=== PATIENT | male | born 1975 | race Caucasian/White ===

== ENCOUNTER 2017-07-05 14:03 | Emergency (ER) | payer OTHER ==
[~2017-07-05] VITALS: Ht 175.3 cm; Wt 81.1 kg
[2017-07-05 14:08] VITALS: TEMP 37.2; Ht 175.3 cm; Wt 81.1 kg
[2017-07-05] MEDS ORDERED: LIDOCAINE/EPINEPHRINE 1% 20 ML VIAL INFIL STA (14:23)
[2017-07-05] MEDS ORDERED: MULTTAB58 PO (14:54)
[2017-07-05] MEDS ORDERED: OMEG10007 PO (14:54)
[2017-07-05] MEDS ORDERED: ASPI81TA28 PO (14:54)
--- NOTE | 2017-07-05 14:58 | EMERGENCY ROOM VISIT NOTE ---
ED Visit Note First contact with patient: 14:12 CHIEF COMPLAINT: Scalp laceration HISTORY OF PRESENT ILLNESS: This 41-year-old male patient presents emergency department, ambulatory, approximately 1 hour after striking the head with a large tool used to be holes into the ground for a fence. He states that the toe caught the edge of the post, forcibly striking the top left side of his head. There was no loss of consciousness, blurry vision, nausea, vomiting, or unusual behavior afterwards. The patient rates the pain as sharp and 3/10. The patient denies neck pain. The bleeding has not stopped. The patient's tetanus shot is not up to date. REVIEW OF SYSTEMS: A 6 system review of systems was completed with positives and pertinent negatives listed in the HPI. ALLERGIES: None MEDICATIONS: Aspirin, ibuprofen PMH: None SOCIAL HISTORY: The patient lives locally with family. He denies drug, alcohol , tobacco use. PHYSICAL EXAM: Vital Signs: Reviewed Nurse's notes, vital signs stable. GENERAL : This is a 41-year-old white male, in no acute distress, well-developed, well- nourished. NEURO: Patient was alert and oriented to person place and time. Sensory and motor functions grossly intact. No focal neurologic deficits. Normal sensation to light and sharp touch. EYES: PERRLA. EOMI. Fundoscopic exam without hemorrhages or papilledema. EARS: No hemotympanum. No blanchard sign or mastoid tenderness. SKIN: There is a 2 cm laceration on the superior left temporal aspect of the scalp whose edges are gaping apart. There is minimal bleeding. The wound is clean and there are no deep structures present. NECK: Supple, cervical spine nontender to palpation. EMERGENCY DEPARTMENT COURSE: I examined the patient. Verbal consent was obtained to perform the procedure. Using sterile technique the wound was cleaned with Betadine. The area was sterilely draped. 2 ml of 1% lidocaine with epinephrine was used to anesthetize the patient's scalp. Once the patient was numb, the wound was copiously irrigated under pressure with sterile saline. The wound was explored and there were no deep structures present. The laceration was repaired using 5 jean carlos with the wound edges being well approximated. The patient tolerated the procedure well. The bleeding stopped. The area was cleaned with sterile saline and dressed with bacitracin ointment. The patient was given a Tdap booster. The patient was discharged home in good condition. I attest that I have personally reviewed the patient's current medication list. Blood Pressure Screening: Patient was found to have a slightly elevated blood pressure due to circumstances. I do not believe that the patient requires hypertension monitoring. Differential diagnosis includes head injury, concussion, ICH, laceration, contusion, fracture, sprain/strain, tendon or ligament injury, neurovascular compromise, foreign body, assault, and others DIAGNOSIS: Scalp laceration The chart was completed utilizing [employer] Speech voice recognition software. Grammatical errors, random word insertions, pronoun errors, and incomplete sentences are an occasional consequence of this system due to software limitations, ambient noise, and hardware issues. Any formal questions or concerns about the content, text, or information contained within the body of this dictation should be directly addressed to the provider for clarification. Current/Historical Medications Scheduled Aspirin (Aspirin Ec), 81 MG PO DAILY Fish Oil (Freeland-3), 1 CAP PO DAILY Multiple Vitamin (Multivitamin), 1 TAB PO DAILY Allergies Coded Allergies: No Known Allergies (Unverified , 07/05/17) Vital Signs Date Time Temp Pulse Resp B/P (MAP) Pulse Ox O2 Delivery O2 Flow Rate FiO2 07/05/17 14:08 37.2 82 18 142/95 98 Room Air Departure Information Impression Primary Impression: Scalp laceration Dispostion Home / Self-Care Condition GOOD Referrals Yvette Torres PA-C (PCP) Patient Instructions ED Laceration Scalp Stitch Or Stap, [facility] Additional Instructions You have received 5 jean carlos on your scalp. These jean carlos are NOT dissolvable and WILL need to be removed by a health care provider in 10 days. You can return to the Emergency Department or contact your Primary Care Provider to have these jean carlos removed. Proper wound care is essential for adequate wound healing and infection prevention. You can shower and clean the wound with soap and water. Do scour over the wound, pat dry with a towel. Do not submerse the wound until the jean carlos have been removed. You can use an antibiotic ointment with a dressing over the wound for the next 3-4 days. After this time you may leave the wound dry and open to the air. If crust develops over the wound you can use a Q-tip to apply a 1:1 peroxide:water solution to clean the wound. Look for signs of infection of the wound including: increased pain, swelling, foul discharge, streaking, or increased temperature. If any of these are noticed you should return to the Emergency Department for further assessment and treatment. As with any laceration you may have received nerve damage to the surrounding tissues. This damage may or may not be permanent. For pain control, you can use the following [id number] medicines (if >12 yo): Ibuprofen(Motrin, Advil) may be used for fever or pain. Use 600mg every six hours as needed. Take with food. Avoid using more than 2400mg in a 24 hour period. Do not use 2400mg per day for more than three consecutive days without physician direction. Prolonged inappropriate use can lead to stomach upset or ulcers. (AND/OR) Acetaminophen(Tylenol) may be used for fever or pain. Use 1000mg every six hours as needed. Avoid using more than 3000mg in a 24 hour period. I do recommend no work or physical activity for the rest of the day. Return immediately for any neurological symptoms including dizziness, vomiting, visual changes, numbness or tingling, weakness, facial drooping, slurred speech , or other concerns. Return to the emergency department if your symptoms worsen despite treatment course outlined above. Problem Qualifiers Primary Impression: Scalp laceration Encounter type: initial encounter Qualified Codes: S01.01XA - Laceration without foreign body of scalp, initial encounter
[2017-07-05] MEDS ORDERED: DIPHTHERIA/TETANUS/PERTUSSIS 0.5 ML SYR/VIAL IM. ONE (15:00)
[2017-07-05 15:24] VITALS: BP 133/82; PULSE 78; O2SAT 98
== END 2017-07-05 15:25 | disposition home or self-care (01) ==
LOC: C.EDD 14:19
DX: S01.01XA Laceration without foreign body of scalp, initial encounter (principal); Z23 Encounter for immunization; W22.8XXA Striking against or struck by other objects, initial encounter